=== PATIENT | female | born 1995 | race Caucasian/White ===

== ENCOUNTER 2019-08-23 01:21 | Emergency (ER) | payer OTHER ==
[2019-08-23 02:03] VITALS: BP 127/77
[2019-08-23] MEDS ORDERED: ACETAMINOPHEN 325 MG TAB PO ONE (02:37)
[2019-08-23] MEDS ORDERED: ACETAMINOPHEN 325 MG TAB ONE (02:39)
== END 2019-08-23 02:00 | disposition left against medical advice (07) ==
LOC: ED 01:21
DX: R50.9 Fever, unspecified (principal); Z53.21 Procedure and treatment not carried out due to patient leaving prior to being seen by health care provider